=== PATIENT | female | born 1980 | race Caucasian/White ===

== ENCOUNTER 2016-04-23 06:00 | Inpatient (IN) | payer MEDICAID ==
[~2016-04-23] VITALS: Ht 180.3 cm; Wt 90.0 kg
[~2016-04-23 06:00] MED LIST: PRENAT PO
[2016-04-23] MEDS ORDERED: ACETAMINOPHEN/CODEINE #3 TAB PO PRN (10:00)
[2016-04-23] MEDS ORDERED: OXYTOCIN 30 UNITS/LR 500 ML IV PRN (10:00)
[2016-04-23] MEDS ORDERED: METHYLERGONOVINE 0.2 MG INJ IM PRN (10:00)
[2016-04-23] MEDS ORDERED: DINOPROSTONE 10 MG VAG SUPP VAG ONE (10:00)
[2016-04-23] MEDS ORDERED: OXYTOCIN 30 UNITS/LR 500 ML IV SCH ×3 (10:00)
[2016-04-23] MEDS ORDERED: CARBOPROST 250 MCG INJ IM PRN (10:00)
[2016-04-23] MEDS ORDERED: BUTORPHANOL 2 MG INJ IV PRN ×2 (10:00)
[2016-04-23] MEDS ORDERED: MISOPROSTOL 200 MCG TAB PR PRN (10:00)
[2016-04-23] MEDS ORDERED: LIDOCAINE 1% (MPF) 30 ML INJ INJ PRN (10:00)
[2016-04-23] MEDS ORDERED: IBUPROFEN 600 MG TAB PO PRN (10:00)
[2016-04-23] MEDS ORDERED: LACTATED RINGER'S 1,000 ML IV PRN (11:00)
[2016-04-23] MEDS: LACTATED RINGER'S 1,000 ML IV SCH ×3 (11:05→23:52)
--- NOTE | 2016-04-23 11:09 | HP ---
Date/Time of Note Date/Time of Note DATE: 04/23/16 TIME: 11:02 OB - History Hx of Present Free Text/Dictation Pt is a 35yo at 40+5 by 10wk U/S presenting for scheduled term IOL. Pt reports normal FM, denies LOF, VB or UCs. Estimated Due Date: Apr 18, 2016 : 2 Para: 0 Spontaneous : 0 Therapeutic : 1 Care: Good Care Ultrasounds: Normal mid trimester US Obstetrical Complications: None Past Family/Social History * Past Medical, Surgical, Family and Obstetric Histories reviewed from chart. Blood Type: A+ Rubella: immune RPR/VDRL: Negative GBS Status: Unknown (collected 03/10/16 and negative, now ) HBsAG: Negative OB Admission Exam Vital Signs Vital Signs 98.7 125/85, 138/87, 134/89 83 Physical Exam HEENT: WNL Heart: Rhythm Normal Lungs: Clear Abdomen: WNL (gravid, nontender, NABS) Extremities: Edema (trace bilateral lower extremity edema) Cervical Dilatation: 1cm Effacement: Other (60%) Station: -3 Membranes: Intact Heart Rate: 130's Accelerations: Accelerations Present Decelerations: No Decelerations Varibility: Moderate Contractions on Admission: None OB Assessment/Plan Reason for admission: induction of labor Plan: Induction Other plan: IOL with Cervidil. Explained induction process, methods used and expectations for induction FWB reassuring, Category 1 FHT Given GBS, will follow risk-based protocol. No indication for prophylaxis at this time Pain meds juann SABRINA RICE MD Apr 23, 2016 11:09
[2016-04-23 11:47] LABS: INR 0.88; PROTIME 11.9 Sec (12.2-14.2); PT RATIO 0.9
[2016-04-23 11:48] LABS: BASOPHILS % 0.1 % (0.0-2.0); EOSINOPHILS # 0.1 10^3/ul (0.0-0.5); EOSINOPHILS % 0.5 % (0.0-7.0); HEMATOCRIT 40.6 % (37.0-47.0); LYMPHOCYTES # 1.6 10^3/ul (0.8-2.9); LYMPHOCYTES % 15.6 % (15.0-51.0); MEAN CORPUSCULAR HEMOGLOBIN 31.8 pg (29.0-33.0); MEAN CORPUSCULAR HGB CONC 34.6 g/dl (32.0-37.0); MEAN PLATELET VOLUME 8.2 fl (7.4-10.4); MONOCYTE # 0.5 10^3/ul (0.3-0.9); MONOCYTES % 4.7 % (0.0-11.0); NEUTROPHIL # 8.2 10^3/ul (1.6-7.5); NEUTROPHILS % 79.1 % (39.0-77.0); PARTIAL THROMBOPLASTIN TIME 23.5 Sec (25.0-35.0); PLATELET COUNT 192 10^3/UL (140-440); RED BLOOD COUNT 4.41 10^6/ul (4.20-5.40); RED CELL DISTRIBUTION WIDTH 12.8 % (11.5-14.5); UNCORRECTED WBC 10.3 10^3/ul (4.8-10.8); WHITE BLOOD COUNT 10.3 10^3/ul (4.8-10.8)
[2016-04-23 11:52] VITALS: Ht 180.3 cm; Wt 90.0 kg
[2016-04-23 11:53] VITALS: BP 126/79; PULSE 77; RESP 20
[2016-04-23 11:57] LABS: CONDITION 1
[2016-04-24] MEDS ORDERED: DINOPROSTONE 10 MG VAG SUPP VAG ONE
--- NOTE | 2016-04-24 04:46 | RADRPT ---
PROCEDURE: ULTRASOUND OBSTETRICAL CLINICAL INDICATION: 35-year-old female and maurilio for a position. TECHNIQUE: Multiple sonographic images of the pelvis were obtained. The images were reviewed on a PACS workstation. COMPARISON: No prior studies are available for comparison. FINDINGS: There is a single viable intrauterine gestation. Cardiac activity is present with 158 beats per min david. There is a vertex presentation. The placenta is posterior. There is no evidence for an abruptio n or placenta previa. IMPRESSION: Single viable intrauterine gestation with vertex presentation. .Osmany Rnagel MD, MD Date Time Electronically viewed and signed by .Osmany Rangel MD, on 04/24/2016 04:46 .M/
[2016-04-24] MEDS: LACTATED RINGER'S 1,000 ML IV SCH ×5 (07:20→21:08)
[2016-04-24] MEDS ORDERED: FENTAnyl 2MCG/ML-ROPIV 0.2% 100 ML ONE (11:50)
[2016-04-24] MEDS ORDERED: NALOXONE (0.4 MG/ML) INJ IV PRN ×2 (12:30→17:00)
[2016-04-24] MEDS ORDERED: FENTAnyl 2MCG/ML-ROPIV 0.2% 100 ML BAG EPI SCH (12:30)
[2016-04-24] MEDS ORDERED: OXYTOCIN 30 UNITS/LR 500 ML IV SCH (12:30)
[2016-04-24] MEDS ORDERED: TERBUTALINE 1 ML ONE (13:20)
[2016-04-24] MEDS ORDERED: TERBUTALINE 1 MG/ML INJ SC ONE (13:30)
[2016-04-24] MEDS ORDERED: CEFAZOLIN 2 GM/50 ML (PMX) 50 ML IVPB ONE (14:00)
[2016-04-24] MEDS ORDERED: LACTATED RINGER'S 500 ML IV ONE (14:00)
[2016-04-24] MEDS ORDERED: CITRIC ACID/NA CITRATE 30 ML CUP ONE (15:44)
[2016-04-24] MEDS ORDERED: LIDOCAINE 2%/EPI 30 ML INJ ONE (15:46)
[2016-04-24] MEDS ORDERED: ONDANSETRON 4 MG INJ ONE (15:47)
[2016-04-24] MEDS ORDERED: morphine SULFATE/PF (10 MG/10 ML) INJ ONE (15:47)
[2016-04-24] MEDS ORDERED: KETOROLAC 30 MG INJ ONE (15:47)
[2016-04-24] MEDS ORDERED: CITRIC ACID/NA CITRATE 30 ML CUP PO ONE (16:00)
--- NOTE | 2016-04-24 16:05 | HP ---
Date/Time of Note Date/Time of Note DATE: 04/24/16 TIME: 16:04 OB - History Hx of Present Free Text/Dictation post dates induction of who had cervidil and pitocin had repatative declerations Care: Good Care Ultrasounds: Normal mid trimester US Obstetrical Complications: None Medical Complications: None Past Family/Social History * Past Medical, Surgical, Family and Obstetric Histories reviewed from chart. OB Admission Exam Vital Signs Vital Signs Vital Signs Date Time Temp Pulse Resp B/P Pulse Ox O2 Delivery O2 Flow Rate FiO2 04/23/16 11:53 98.7 77 20 126/79 Room Air Physical Exam HEENT: WNL Heart: Rhythm Normal Lungs: Clear, Equal Abdomen: WNL Extremities: Normal Reflexes: Normal Intensity: Moderate Last 72 hours Lab Results CBC & BMP 04/23/16 10:50 OB Assessment/Plan Reason for admission: section Plan: Section ARYAN FLORIAN MD Apr 24, 2016 16:05
--- NOTE | 2016-04-24 16:06 | OPR ---
Operative Report Planned Procedure Free Text/Dictation primary c/s for declerations Procedure date Apr 24, 2016 Anesthesia Type: epidural Procedure Description Under satisfactory [] anesthesia, the patient was prepped and draped and placed in a supine position, tilted to the left. Pfannenstiel incision was made, carried through the subcutaneous tissue. Bleeders brought under control with electrocautery. Fascia incised to the length of the incision. Rectus muscles from the fascia, divided midline. Peritoneum exposed, entered through a transverse incision. Exploration of abdomen revealed gravid uterus. Bladder flap was developed. Transverse incision was made in the lower segment of the uterus. Amniotic sac ruptured. [] amniotic fluid noted. [] Nasal oropharyngeal suction was performed. The baby was handed to the team for immediate attention. The placenta was delivered manually intact. Uterine cavity was cleaned with wet sponge and drainage established. Uterus closed in 2 layers using [] in continuous fashion. Peritoneal cavity irrigated with warm saline. Sponge, needle and instrument count reported to be correct. Abdominal peritoneum closed with [] continuously. Rectus muscle approximated with []. Fascia closed with one monocryl [], and skin closed with alex. Estimated blood loss 700[]mL. Urine bag contained []mL of urine Post-Procedure Findings: Live Baby [], Apgars [] and [], weight [], position [], [] presentation []cord. Physician Certification I, the undersigned physician, hereby certify that I have discussed the procedure described in this consent form with this patient (or the patient's legal market survey representative), including: * The risk and benefits of the procedure; * Any adverse reactions that may reasonably be expected to occur; * Any alternative efficacious methods of treatment which may be medically viable ; * The potential problems that may occur during recuperation; * Potential for blood transfusion and associated risks/benefits; and * Any research or economic interest I may have regarding this treatment. I further certify that the patient/legally responsible person was encouraged to ask question and that all questions were answered. ARYAN FLORIAN MD Apr 24, 2016 16:06
[2016-04-24] MEDS ORDERED: FENTAnyl 50 MCG/ML VIAL ONE (16:14)
[2016-04-24] MEDS ORDERED: PROPOFOL 20 ML ONE (16:21)
[2016-04-24] MEDS ORDERED: HYDROmorphONE (0.2 MG/ML) 10ML SYG IV PRN ×3 (17:00)
[2016-04-24] MEDS ORDERED: HYDROmorphONE 1 MG/ML SYG IV PRN ×3 (17:00)
[2016-04-24] MEDS ORDERED: LEVALBUTEROL (NEB) 0.63 MG/3 ML AMP HHN ONE (17:00)
[2016-04-24] MEDS ORDERED: ALBUTEROL 0.5% (NEB) 2.5 MG/0.5 ML AMP INH ONE (17:00)
[2016-04-24] MEDS ORDERED: METOCLOPRAMIDE 10 MG INJ IV PRN (17:00)
[2016-04-24] MEDS ORDERED: DIPHENHYDRAMINE 50 MG INJ IV PRN (17:00)
[2016-04-24] MEDS ORDERED: ONDANSETRON 4 MG INJ IV PRN ×2 (17:00)
[2016-04-24 20:30] VITALS: BP 134/64; PULSE 83; RESP 18
[2016-04-24] MEDS ORDERED: OXYTOCIN 30 UNITS/LR 500 ML IV PRN (22:30)
[2016-04-24] MEDS ORDERED: METHYLERGONOVINE 0.2 MG INJ IM PRN (22:30)
[2016-04-24] MEDS ORDERED: LANOLIN 7 GM TUBE TOP PRN (22:30)
[2016-04-24] MEDS ORDERED: SENNA/DOCUSATE NA (8.6MG/50MG) TAB PO PRN (22:30)
[2016-04-24] MEDS ORDERED: BENZOCAINE 20% 56 ML SPRAY TOP PRN (22:30)
[2016-04-24] MEDS ORDERED: MISOPROSTOL 200 MCG TAB PR PRN (22:30)
[2016-04-24] MEDS ORDERED: DIBUCAINE 1% 30 GM OINT PR PRN (22:30)
[2016-04-24] MEDS ORDERED: CARBOPROST 250 MCG INJ IM PRN (22:30)
[2016-04-24] MEDS ORDERED: WITCH HAZEL/GLYCERIN PAD PR PRN (22:30)
[2016-04-24] MEDS: LACTATED RINGER'S 1,000 ML IV* SCH (23:03)
[2016-04-25 00:10] VITALS: BP 103/55; PULSE 78; RESP 18
[2016-04-25 04:00] VITALS: BP 108/58; PULSE 78; RESP 18
[2016-04-25] MEDS: LACTATED RINGER'S 1,000 ML IV* SCH ×3 (05:03→22:16)
[2016-04-25 07:41] LABS: ADD SCAN DIFF NO
[2016-04-25 07:45] VITALS: BP 118/61; PULSE 77; RESP 16
[2016-04-25 07:45] LABS: BASOPHILS % 0.1 % (0.0-2.0); EOSINOPHILS % 0.4 % (0.0-7.0); HEMATOCRIT 33.2 % (37.0-47.0); HEMOGLOBIN 11.1 g/dl (12.0-16.0); LYMPHOCYTES # 1.6 10^3/ul (0.8-2.9); LYMPHOCYTES % 14.8 % (15.0-51.0); MEAN CORPUSCULAR HEMOGLOBIN 31.5 pg (29.0-33.0); MEAN CORPUSCULAR HGB CONC 33.4 g/dl (32.0-37.0); MEAN CORPUSCULAR VOLUME 94.3 fl (82.0-101.0); MEAN PLATELET VOLUME 9.9 fl (7.4-10.4); MONOCYTE # 0.7 10^3/ul (0.3-0.9); MONOCYTES % 6.3 % (0.0-11.0); NEUTROPHIL # 8.3 10^3/ul (1.6-7.5); NEUTROPHILS % 78.1 % (39.0-77.0); PLATELET COUNT 154 10^3/UL (140-415); RED BLOOD COUNT 3.52 10^6/ul (4.20-5.40); RED CELL DISTRIBUTION WIDTH 12.5 % (11.5-14.5); WHITE BLOOD COUNT 10.6 10^3/ul (4.8-10.8)
--- NOTE | 2016-04-25 08:37 | QN ---
Documentation Comment POD#1 Pt doing well. Has not taken any pain meds and states she is only in pain when positioning herself in bed to feed baby. Has not ambulated yet. Valente still in place. Tolerating full liquid diet w/o N/V. +Flatus. Pt worried about constipation with pain meds and surgery VS: T 98.2 BP 118/61 P 77 RR 16 Gen: well appearing, NAD CV: RRR, nl s1s2 Resp: CTAB Abd: soft, appropriately TTP, NABS, FF 2FB below umbilicus Inc: c/d/i with dressing Karley: valente in place w/good amount of clear urine Ext: symmetric BLE, nontender, no edema Labs: Admission Hgb 14.0-> EBL 700ml-> POD#1 Hgb 11.1 A/P: POD#1 s/p 1LTCS 2/2 FIOL ->progressing towards postop goals ->encourage ambulation later today ->encourage use of pain meds prior to ambulation ->stool softener BID -> support Likely d/c home on POD#3 SABRINA RICE MD Apr 25, 2016 08:37
[2016-04-25] MEDS: KETOROLAC 30 MG INJ IV PRN ×2 (08:51→15:39)
[2016-04-25] MEDS: SENNA/DOCUSATE NA (8.6MG/50MG) TAB PO SCH ×2 (10:55→21:17)
[2016-04-25 12:20] VITALS: BP 112/59; PULSE 78; RESP 16
[2016-04-25 15:45] VITALS: BP 116/65; PULSE 75; RESP 16
[2016-04-25] MEDS: ACETAMINOPHEN/CODEINE #3 TAB PO PRN ×2 (18:20→22:51)
[2016-04-25 20:15] VITALS: BP 131/67; PULSE 75; RESP 18
[2016-04-26] MEDS: ACETAMINOPHEN/CODEINE #3 TAB PO PRN ×4 (03:06→20:33)
[2016-04-26 04:15] VITALS: BP 123/57; PULSE 72; RESP 18
[2016-04-26 08:00] VITALS: BP 133/70; PULSE 79; RESP 20
[2016-04-26] MEDS: SENNA/DOCUSATE NA (8.6MG/50MG) TAB PO SCH ×2 (09:06→20:33)
--- NOTE | 2016-04-26 10:57 | PN ---
Date/Time of Note Date/Time of Note DATE: 04/26/16 TIME: 10:49 OB Subjective Subjective Subjective Post C Section 2 Patient is doing well, Ambulatory She is afebrile Abdomen is soft , Fundus is firm Moderate amount of lochia Breasts are soft, Nipples are intact No calf tenderness. Incision is healing well Current Medications Medications (Trade) Dose Ordered Sig/Tino Route PRN Reason Start Time Stop Time Status Last Admin Dose Admin Lactated Ringer's (Lr) 1,000 ml @ 125 mls/hr Q8H IV 04/23/16 09:42 04/24/16 22:23 DC 04/24/16 21:08 Dinoprostone 10 mg 10 mg ONCE ONCE VAG 04/23/16 10:00 04/23/16 10:55 DC 04/23/16 11:05 Oxytocin/Lactated Ringer's 500 ml @ 0 mls/hr TITRATE IV 04/23/16 10:00 04/24/16 22:23 DC 04/24/16 12:36 Butorphanol Tartrate (Stadol) 1 mg Q2H PRN IV PAIN 04/23/16 10:00 04/24/16 22:23 DC Butorphanol Tartrate (Stadol) 2 mg Q2H PRN IV PAIN 04/23/16 10:00 04/24/16 22:23 DC Lidocaine 30 ml 30 ml ONCE PRN INJ EPISIOTOMY/TEARING 04/23/16 10:00 04/24/16 22:23 DC Oxytocin/Lactated Ringer's 500 ml @ 125 mls/hr ONCE -MAY REPEAT X1 IV 04/23/16 10:00 04/24/16 22:23 DC Oxytocin/Lactated Ringer's 500 ml @ 125 mls/hr ONCE IV 04/23/16 10:00 04/24/16 22:23 DC 04/24/16 16:56 Ibuprofen (Motrin) 600 mg ONCE PRN PO Mild Pain (Pain Score 1-3) 04/23/16 10:00 04/24/16 22:24 DC Acetaminophen/ Codeine Phosphate 2 tab 2 tab ONCE PRN PO Moderate to Severe Pain (4-10) 04/23/16 10:00 04/24/16 22:24 DC Lactated Ringer's 1,000 ml @ 2,000 mls/hr Q30M PRN IV PRE-EPIDURAL BOLUS 04/23/16 11:00 04/24/16 22:24 DC Oxytocin/Lactated Ringer's 500 ml @ 0 mls/hr ONCE PRN IV For Hemorrhage Management 04/23/16 10:00 04/24/16 22:24 DC Methylergonovine Maleate (Methergine) 0.2 mg ONCE PRN IM VAGINAL BLEEDING 04/23/16 10:00 04/24/16 22:24 DC Carboprost Tromethamine (Hemabate) 250 mcg ONCE PRN IM VAGINAL BLEEDING 04/23/16 10:00 04/24/16 22:24 DC Misoprostol (Cytotec) 1,000 mcg ONCE PRN [place] VAGINAL BLEEDING 04/23/16 10:00 04/24/16 22:24 DC Dinoprostone 10 mg 10 mg ONCE ONCE VAG 04/24/16 00:00 04/24/16 00:01 DC 04/23/16 23:52 Fentanyl/ Ropivacaine 100 ml @ ud STK-MED ONCE .ROUTE 04/24/16 11:50 04/24/16 11:51 DC Naloxone HCl (Narcan) 0.2 mg Q2M PRN IV FOR RESP RATE 8 OR LESS 04/24/16 12:30 04/24/16 22:24 DC Fentanyl/ Ropivacaine 100 ml 100 ml EPIDURAL (PCEA) EPI 04/24/16 12:30 04/24/16 22:24 DC Oxytocin/Lactated Ringer's 500 ml @ 0 mls/hr TITRATE IV 04/24/16 12:30 04/24/16 22:24 DC Terbutaline Sulfate (Brethine) 1 ml @ ud STK-MED ONCE .ROUTE 04/24/16 13:20 04/24/16 13:21 DC Terbutaline Sulfate 0.25 mg 0.25 mg ONCE ONCE SC 04/24/16 13:30 04/24/16 13:31 DC 04/24/16 13:40 Cefazolin Sodium/ Dextrose 50 ml @ 100 mls/hr ONCE ONCE IVPB 04/24/16 14:00 04/24/16 14:29 DC Lactated Ringer's (Lr) 500 ml @ 500 mls/hr Q1H ONCE IV 04/24/16 14:00 04/24/16 14:59 DC Citric Acid/ Sodium Citrate (Bicitra) 30 ml STK-MED ONCE .ROUTE 04/24/16 15:44 04/24/16 15:45 DC Citric Acid/ Sodium Citrate (Bicitra) 30 ml ONCE ONCE PO 04/24/16 16:00 04/24/16 16:01 DC 04/24/16 16:40 Lidocaine/ Epinephrine (Xylocaine 2%/ Epi) 30 ml STK-MED ONCE .ROUTE 04/24/16 15:46 04/24/16 15:47 DC Ondansetron HCl (Zofran Inj) 4 mg STK-MED ONCE .ROUTE 04/24/16 15:47 04/24/16 15:48 DC Ketorolac Tromethamine (Toradol) 30 mg STK-MED ONCE .ROUTE 04/24/16 15:47 04/24/16 15:48 DC Morphine Sulfate (Duramorph) 10 mg STK-MED ONCE .ROUTE 04/24/16 15:47 04/24/16 15:48 DC Fentanyl 100 mcg 100 mcg STK-MED ONCE .ROUTE 04/24/16 16:14 04/24/16 16:15 DC Propofol (Diprivan) 20 ml @ ud STK-MED ONCE .ROUTE 04/24/16 16:21 04/24/16 16:22 DC Hydromorphone HCl (Dilaudid (Rec)) 0.2 mg PACU ORDER PRN IV MILD PAIN LEVEL 1-3 04/24/16 17:00 04/24/16 21:00 DC Hydromorphone HCl (Dilaudid (Rec)) 0.4 mg PACU ORDER PRN IV MODERATE PAIN LEVEL 4-6 04/24/16 17:00 04/24/16 21:00 DC Hydromorphone HCl (Dilaudid (Rec)) 0.6 mg PACU ORDER PRN IV SEVERE PAIN LEVEL 7-10 04/24/16 17:00 04/24/16 21:00 DC Ondansetron HCl (Zofran Inj) 4 mg PACU ORDER PRN IV NAUSEA AND/OR VOMITING 04/24/16 17:00 04/24/16 21:00 DC Metoclopramide HCl (Reglan) 10 mg PACU ORDER PRN IV NAUSEA AND/OR VOMITING 04/24/16 17:00 04/24/16 21:00 DC Albuterol (Proventil 0.5% (Neb)) 2.5 mg PACU ORDER ONCE INH 04/24/16 17:00 04/24/16 17:01 DC Levalbuterol (Xopenex Neb) 0.63 mg PACU ORDER ONCE HHN 04/24/16 17:00 04/24/16 17:01 DC Naloxone HCl (Narcan) 0.1 mg Q2M PRN IV FOR RESP RATE 8 OR LESS 04/24/16 17:00 04/25/16 16:59 DC Ketorolac Tromethamine (Toradol) 30 mg Q6H PRN IV PAIN 04/24/16 17:00 04/25/16 16:59 DC 04/25/16 15:39 Hydromorphone HCl (Dilaudid) 1 mg Q3H PRN IV BREAKTHROUGH PAIN 04/24/16 17:00 04/25/16 16:59 DC Hydromorphone HCl (Dilaudid) 0.2 mg Q3H PRN IV PAIN LEVEL 1-5 04/24/16 17:00 04/25/16 16:59 DC Hydromorphone HCl (Dilaudid) 0.4 mg Q3H PRN IV PAIN LEVEL 6-10 04/24/16 17:00 04/25/16 16:59 DC Diphenhydramine HCl (Benadryl) 25 mg Q6H PRN IV ITCHING 04/24/16 17:00 04/25/16 16:59 DC Ondansetron HCl 4 mg 4 mg Q6H PRN IV NAUSEA AND/OR VOMITING 04/24/16 17:00 04/25/16 16:59 DC Lactated Ringer's (Lr) 1,000 ml @ 125 mls/hr Q8H IV* 04/24/16 22:16 04/25/16 12:48 Acetaminophen/ Codeine Phosphate (Tylenol No.3) 1 tab Q4H PRN PO PAIN LEVEL 1-5 04/24/16 22:30 04/26/16 09:07 Acetaminophen/ Codeine Phosphate (Tylenol No.3) 2 tab Q4H PRN PO PAIN LEVEL 6-10 04/24/16 22:30 04/26/16 03:06 Senna/Docusate Sodium (Senokot-S) 1 tab BID PRN PO CONSTIPATION 04/24/16 22:30 04/25/16 09:09 DC Witch Emily/ Glycerin (Tucks Pads) 1 pad BEDSIDE MEDICATION PRN [place] HEMORRHOID/EPISIOTMY PAIN 04/24/16 22:30 04/25/16 22:50 Benzocaine (Dermoplast [place]) 1 spray BEDSIDE MEDICATION PRN TOP HEMORRHOID/EPISIOTMY PAIN 04/24/16 22:30 04/25/16 22:50 Dibucaine (Nupercainal) 1 applic BEDSIDE MEDICATION PRN [place] HEMORRHOID/EPISIOTMY PAIN 04/24/16 22:30 Lanolin 1 applic 1 applic BEDSIDE MEDICATION PRN TOP BEDSIDE FOR HELDER TO NIPPLES 04/24/16 22:30 04/25/16 22:49 Oxytocin/Lactated Ringer's 500 ml @ 0 mls/hr ONCE PRN IV For Hemorrhage Management 04/24/16 22:30 Methylergonovine Maleate (Methergine) 0.2 mg ONCE PRN IM VAGINAL BLEEDING 04/24/16 22:30 Carboprost Tromethamine (Hemabate) 250 mcg ONCE PRN IM VAGINAL BLEEDING 04/24/16 22:30 Misoprostol (Cytotec) 1,000 mcg ONCE PRN [place] VAGINAL BLEEDING 04/24/16 22:30 Senna/Docusate Sodium (Senokot-S) 1 tab BID PO 04/25/16 09:30 04/26/16 09:06 IV Flush (NS 10 ml) 10 ml Q8H AND PRN IV 04/25/16 16:30 04/25/16 22:51 PIPPA MORENO MD Apr 26, 2016 10:57
--- NOTE | 2016-04-26 11:00 | PN ---
Date/Time of Note Date/Time of Note DATE: 04/26/16 TIME: 10:58 OB Subjective Subjective Subjective Post day 1 Patient is doing well, Ambulatory She is afebrile Abdomen is soft , Fundus is firm Moderate amount of lochia Breasts are soft, Nipples are intact No calf tenderness. Perineum is healing well. Breast feeding the new born. Current Medications Medications (Trade) Dose Ordered Sig/Tino Route PRN Reason Start Time Stop Time Status Last Admin Dose Admin Lactated Ringer's (Lr) 1,000 ml @ 125 mls/hr Q8H IV 04/23/16 09:42 04/24/16 22:23 DC 04/24/16 21:08 Dinoprostone 10 mg 10 mg ONCE ONCE VAG 04/23/16 10:00 04/23/16 10:55 DC 04/23/16 11:05 Oxytocin/Lactated Ringer's 500 ml @ 0 mls/hr TITRATE IV 04/23/16 10:00 04/24/16 22:23 DC 04/24/16 12:36 Butorphanol Tartrate (Stadol) 1 mg Q2H PRN IV PAIN 04/23/16 10:00 04/24/16 22:23 DC Butorphanol Tartrate (Stadol) 2 mg Q2H PRN IV PAIN 04/23/16 10:00 04/24/16 22:23 DC Lidocaine 30 ml 30 ml ONCE PRN INJ EPISIOTOMY/TEARING 04/23/16 10:00 04/24/16 22:23 DC Oxytocin/Lactated Ringer's 500 ml @ 125 mls/hr ONCE -MAY REPEAT X1 IV 04/23/16 10:00 04/24/16 22:23 DC Oxytocin/Lactated Ringer's 500 ml @ 125 mls/hr ONCE IV 04/23/16 10:00 04/24/16 22:23 DC 04/24/16 16:56 Ibuprofen (Motrin) 600 mg ONCE PRN PO Mild Pain (Pain Score 1-3) 04/23/16 10:00 04/24/16 22:24 DC Acetaminophen/ Codeine Phosphate 2 tab 2 tab ONCE PRN PO Moderate to Severe Pain (4-10) 04/23/16 10:00 04/24/16 22:24 DC Lactated Ringer's 1,000 ml @ 2,000 mls/hr Q30M PRN IV PRE-EPIDURAL BOLUS 04/23/16 11:00 04/24/16 22:24 DC Oxytocin/Lactated Ringer'sPost day 1 Patient is doing well, Ambulatory She is afebrile Abdomen is soft , Fundus is firm Moderate amount of lochia Breasts are soft, Nipples are intact No calf tenderness. Perineum is healing well. Breast feeding the new born. 500 ml @ 0 mls/hr ONCE PRN IV For Hemorrhage Management 04/23/16 10:00 04/24/16 22:24 DC Methylergonovine Maleate (Methergine) 0.2 mg ONCE PRN IM VAGINAL BLEEDING 04/23/16 10:00 04/24/16 22:24 DC Carboprost Tromethamine (Hemabate) 250 mcg ONCE PRN IM VAGINAL BLEEDING 04/23/16 10:00 04/24/16 22:24 DC Misoprostol (Cytotec) 1,000 mcg ONCE PRN [place] VAGINAL BLEEDING 04/23/16 10:00 04/24/16 22:24 DC Dinoprostone 10 mg 10 mg ONCE ONCE VAG 04/24/16 00:00 04/24/16 00:01 DC 04/23/16 23:52 Fentanyl/ Ropivacaine 100 ml @ ud STK-MED ONCE .ROUTE 04/24/16 11:50 04/24/16 11:51 DC Naloxone HCl (Narcan) 0.2 mg Q2M PRN IV FOR RESP RATE 8 OR LESS 04/24/16 12:30 04/24/16 22:24 DC Fentanyl/ Ropivacaine 100 ml 100 ml EPIDURAL (PCEA) EPI 04/24/16 12:30 04/24/16 22:24 DC Oxytocin/Lactated Ringer's 500 ml @ 0 mls/hr TITRATE IV 04/24/16 12:30 04/24/16 22:24 DC Terbutaline Sulfate (Brethine) 1 ml @ ud STK-MED ONCE .ROUTE 04/24/16 13:20 04/24/16 13:21 DC Terbutaline Sulfate 0.25 mg 0.25 mg ONCE ONCE SC 04/24/16 13:30 04/24/16 13:31 DC 04/24/16 13:40 Cefazolin Sodium/ Dextrose 50 ml @ 100 mls/hr ONCE ONCE IVPB 04/24/16 14:00 04/24/16 14:29 DC Lactated Ringer's (Lr) 500 ml @ 500 mls/hr Q1H ONCE IV 04/24/16 14:00 04/24/16 14:59 DC Citric Acid/ Sodium Citrate (Bicitra) 30 ml STK-MED ONCE .ROUTE 04/24/16 15:44 04/24/16 15:45 DC Citric Acid/ Sodium Citrate (Bicitra) 30 ml ONCE ONCE PO 04/24/16 16:00 04/24/16 16:01 DC 04/24/16 16:40 Lidocaine/ Epinephrine (Xylocaine 2%/ Epi) 30 ml STK-MED ONCE .ROUTE 04/24/16 15:46 04/24/16 15:47 DC Ondansetron HCl (Zofran Inj) 4 mg STK-MED ONCE .ROUTE 04/24/16 15:47 04/24/16 15:48 DC Ketorolac Tromethamine (Toradol) 30 mg STK-MED ONCE .ROUTE 04/24/16 15:47 04/24/16 15:48 DC Morphine Sulfate (Duramorph) 10 mg STK-MED ONCE .ROUTE 04/24/16 15:47 04/24/16 15:48 DC Fentanyl 100 mcg 100 mcg STK-MED ONCE .ROUTE 04/24/16 16:14 04/24/16 16:15 DC Propofol (Diprivan) 20 ml @ ud STK-MED ONCE .ROUTE 04/24/16 16:21 04/24/16 16:22 DC Hydromorphone HCl (Dilaudid (Rec)) 0.2 mg PACU ORDER PRN IV MILD PAIN LEVEL 1-3 04/24/16 17:00 04/24/16 21:00 DC Hydromorphone HCl (Dilaudid (Rec)) 0.4 mg PACU ORDER PRN IV MODERATE PAIN LEVEL 4-6 04/24/16 17:00 04/24/16 21:00 DC Hydromorphone HCl (Dilaudid (Rec)) 0.6 mg PACU ORDER PRN IV SEVERE PAIN LEVEL 7-10 04/24/16 17:00 04/24/16 21:00 DC Ondansetron HCl (Zofran Inj) 4 mg PACU ORDER PRN IV NAUSEA AND/OR VOMITING 04/24/16 17:00 04/24/16 21:00 DC Metoclopramide HCl (Reglan) 10 mg PACU ORDER PRN IV NAUSEA AND/OR VOMITING 04/24/16 17:00 04/24/16 21:00 DC Albuterol (Proventil 0.5% (Neb)) 2.5 mg PACU ORDER ONCE INH 04/24/16 17:00 04/24/16 17:01 DC Levalbuterol (Xopenex Neb) 0.63 mg PACU ORDER ONCE HHN 04/24/16 17:00 04/24/16 17:01 DC Naloxone HCl (Narcan) 0.1 mg Q2M PRN IV FOR RESP RATE 8 OR LESS 04/24/16 17:00 04/25/16 16:59 DC Ketorolac Tromethamine (Toradol) 30 mg Q6H PRN IV PAIN 04/24/16 17:00 04/25/16 16:59 DC 04/25/16 15:39 Hydromorphone HCl (Dilaudid) 1 mg Q3H PRN IV BREAKTHROUGH PAIN 04/24/16 17:00 04/25/16 16:59 DC Hydromorphone HCl (Dilaudid) 0.2 mg Q3H PRN IV PAIN LEVEL 1-5 04/24/16 17:00 04/25/16 16:59 DC Hydromorphone HCl (Dilaudid) 0.4 mg Q3H PRN IV PAIN LEVEL 6-10 04/24/16 17:00 04/25/16 16:59 DC Diphenhydramine HCl (Benadryl) 25 mg Q6H PRN IV ITCHING 04/24/16 17:00 04/25/16 16:59 DC Ondansetron HCl 4 mg 4 mg Q6H PRN IV NAUSEA AND/OR VOMITING 04/24/16 17:00 04/25/16 16:59 DC Lactated Ringer's (Lr) 1,000 ml @ 125 mls/hr Q8H IV* 04/24/16 22:16 04/26/16 10:54 DC 04/25/16 12:48 Acetaminophen/ Codeine Phosphate (Tylenol No.3) 1 tab Q4H PRN PO PAIN LEVEL 1-5 04/24/16 22:30 04/26/16 09:07 Acetaminophen/ Codeine Phosphate (Tylenol No.3) 2 tab Q4H PRN PO PAIN LEVEL 6-10 04/24/16 22:30 04/26/16 03:06 Senna/Docusate Sodium (Senokot-S) 1 tab BID PRN PO CONSTIPATION 04/24/16 22:30 04/25/16 09:09 DC Witch Emily/ Glycerin (Tucks Pads) 1 pad BEDSIDE MEDICATION PRN [place] HEMORRHOID/EPISIOTMY PAIN 04/24/16 22:30 04/25/16 22:50 Benzocaine (Dermoplast [place]) 1 spray BEDSIDE MEDICATION PRN TOP HEMORRHOID/EPISIOTMY PAIN 04/24/16 22:30 04/25/16 22:50 Dibucaine (Nupercainal) 1 applic BEDSIDE MEDICATION PRN [place] HEMORRHOID/EPISIOTMY PAIN 04/24/16 22:30 Lanolin 1 applic 1 applic BEDSIDE MEDICATION PRN TOP BEDSIDE FOR HELDER TO NIPPLES 04/24/16 22:30 04/25/16 22:49 Oxytocin/Lactated Ringer's 500 ml @ 0 mls/hr ONCE PRN IV For Hemorrhage Management 04/24/16 22:30 Methylergonovine Maleate (Methergine) 0.2 mg ONCE PRN IM VAGINAL BLEEDING 04/24/16 22:30 Carboprost Tromethamine (Hemabate) 250 mcg ONCE PRN IM VAGINAL BLEEDING 04/24/16 22:30 Misoprostol (Cytotec) 1,000 mcg ONCE PRN [place] VAGINAL BLEEDING 04/24/16 22:30 Senna/Docusate Sodium (Senokot-S) 1 tab BID PO 04/25/16 09:30 04/26/16 09:06 IV Flush (NS 10 ml) 10 ml Q8H AND PRN IV 04/25/16 16:30 04/25/16 22:51 PIPPA MORENO MD Apr 26, 2016 11:00
[2016-04-26 16:00] VITALS: BP 130/64; PULSE 69; RESP 20
[2016-04-26 20:15] VITALS: BP 133/69; PULSE 80; RESP 18
[2016-04-27] MEDS: ACETAMINOPHEN/CODEINE #3 TAB PO PRN ×4 (02:02→21:16)
[2016-04-27 04:30] VITALS: BP 128/61; PULSE 72; RESP 18
[2016-04-27 08:00] VITALS: BP 140/73; PULSE 62; RESP 18
[2016-04-27] MEDS: SENNA/DOCUSATE NA (8.6MG/50MG) TAB PO SCH ×2 (09:46→21:16)
--- NOTE | 2016-04-27 15:02 | DS ---
Date/Time of Note Date/Time of Note DATE: 04/27/16 TIME: 15:01 Obstetrical Discharge Record Final Diagnosis Final Diagnosis: Term delivered Section Section: Primary Primary Indication intolerance to labor Condition on Discharge Physical Assessment Voiding: Yes Bowel Movement: No Fundus: Firm Calf Tenderness: No Patient Condition: Stable HEIDY HALE MD Apr 27, 2016 15:02
[2016-04-27] MEDS ORDERED: DIPHTH/TET/ACEL PERTUSS (ADULT) 0.5 ML VIAL IM* ONE (15:30)
[2016-04-27] MEDS ORDERED: BISACODYL (EC) 5 MG TAB PO ONE (15:30)
[2016-04-27 16:00] VITALS: BP 134/61; RESP 20
[2016-04-27 20:15] VITALS: BP 133/76; PULSE 63; RESP 20
[2016-04-28] MEDS: ACETAMINOPHEN/CODEINE #3 TAB PO PRN ×3 (01:04→09:07)
[2016-04-28 03:45] VITALS: BP 133/76; PULSE 59; RESP 18
[2016-04-28 07:50] VITALS: BP 118/79; PULSE 74; RESP 19
[2016-04-28] MEDS: SENNA/DOCUSATE NA (8.6MG/50MG) TAB PO SCH (09:07)
== END 2016-04-28 15:43 | disposition home or self-care (01) | DRG 766 ==
LOC: L-D 06:20 → PP1 04-24 20:26
PROVIDERS: ADMIT Obstetrics & Gynecology; ATTEND Obstetrics & Gynecology
PROC: 10D00Z1 Extraction of Products of Conception, Low, Open Approach (ICD-10-PCS; 2016-04-24)
PROC: 3E0P7GC Introduction of Other Therapeutic Substance into Female Reproductive, Via Natural or Artificial Opening (ICD-10-PCS; principal; 2016-04-24 16:00)
DX: O48.0 Post-term pregnancy (principal); O76 Abnormality in fetal heart rate and rhythm complicating labor and delivery; Z3A.40 40 weeks gestation of pregnancy; Z37.0 Single live birth
CPT/HCPCS: 76815; 85025; 85610; 85730; 86592; 86900; 86901; 87340; 88307; 90715; 94760; J0690; J1885; J2274; J2405; J2590; J3010; J3105; J7120